=== PATIENT | female | born 1970 | race Caucasian/White ===

== ENCOUNTER 2017-01-26 00:19 | Emergency (ER) | payer MEDICARE, MEDICAID ==
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
--- NOTE | 2017-01-26 13:14 | Diagnostic Imaging Report ---
Portable chest x-ray History: Pain, trauma Allowing for portable technique the heart size is normal. No focal pulmonary parenchymal processes. No hilar or mediastinal abnormalities. Impression: No acute abnormalities.
--- NOTE | 2017-01-26 15:14 | Diagnostic Imaging Report ---
Facial bones (3 views) HISTORY: Pain, trauma Views are limited. Bony margins about the orbits appear intact. Suboptimal delineation the zygomatic arches. No obvious displaced fractures. Normal aeration of the paranasal sinuses. No acute bony abnormalities involve the mandible. IMPRESSION: No definite acute abnormalities
--- NOTE | 2017-01-26 15:15 | Diagnostic Imaging Report ---
KUB abdominal film HISTORY: Pain Exam demonstrates stool-filled nondilated ascending colon with minimally dilated air-filled transverse colon. Additional nondilated small bowel loops are seen. Surgical clips noted in the right upper quadrant of the abdomen consistent with a prior cholecystectomy. IMPRESSION: 1. Stool-filled minimally distended ascending colon with an otherwise nonspecific bowel gas pattern.
== END 2017-01-26 01:10 | disposition home or self-care (01) ==
LOC: ER 00:19
DX: R07.89 Other chest pain (principal); F17.200 Nicotine dependence, unspecified, uncomplicated; F31.9 Bipolar disorder, unspecified; F43.10 Post-traumatic stress disorder, unspecified; Z88.1 Allergy status to other antibiotic agents; Z88.8 Allergy status to other drugs, medicaments and biological substances
CPT/HCPCS: 99284; 96372; 99406; 93005; 70150; 71010; 74000; J1885; Z7502

== ENCOUNTER 2018-01-18 20:58 | Emergency (ER) | payer MEDICARE, MEDICAID ==
--- NOTE | 2018-01-18 22:05 | ED Physician Chart ---
ED Chief Complaint/HPI - Patient Information Date Seen:: 01/18/18 Time Seen:: 22:01 Chief Complaint:: Mouth pain History of Present Illness:: 47 yo female had lip lesions and pain for 2 weeks. She had biopsy done at [facility] 3 weeks ago. She had bipolar since 24 yo old. She also had anxiety and PTSD. Allergies:: Allergies Allergy/AdvReac Type Severity Reaction Status Date / Time erythromycin base Allergy Verified 01/26/17 00:26 lamotrigine [From Lamictal] Allergy Verified 01/26/17 00:26 Vitals:: Vital Signs - 8 hr 01/18/18 21:15 Temp 98.1 F HR 82 RR 20 BP 142/112 O2 Sat % 97 ED Review of Systems - Review of Systems General/Constitutional: No fever, No chills Skin: Skin lesions Head: Headache Eyes: No pain ENT: No nasal drainage, Other (mouth pain) Neck: No neck pain Cardio Vascular: No chest pain Pulmonary: No SOB GI: No nausea, No vomiting ED Past Medical History - Past Medical History Past Medical History: Other (Chronic coastochondritis, possible facial fungal infection) Social History: Smoker, Alcohol, Illicit Drug Use (Marijuana) Surgical History: Cholecystectomy Psychiatricy History: Bipolar, Other (anxiety, PTSD) Family Medical History - Family Member Mother History Unknown: Yes ED Physical Exam - Physical Examination General/Constitutional: Awake, Alert Head: Atraumatic Eyes: PERRL Other Skin comments:: upper and lower lips crusty lesions ENMT: Nasal exam nl Neck: No nuchal rigidity Respiratory: Clear to Auscultation Cardio Vascular: RRR, No murmur, gallop, rubs, NL S1 S2 GI: No tenderness/rebounding/guarding Neuro/Psych: Alert/oriented, No focal deficits ED Assessment - Assessment General Assessment: Mouth pain Bipolar disorder Assessment/Comments:: Ibuprofen 800mg po x 1 D/c home Continue home medications F/u biopsy pathology report ED Septic Shock - . Is Septic Shock (SBP<90, OR Lactate>4 mmol\L) present?: No - <6hrs of presentation: Vital Signs: Vital Signs - 8 hr 01/18/18 21:15 Temp 98.1 F HR 82 RR 20 BP 142/112 O2 Sat % 97 ED Reassessment (Disposition) - Reassessment Reassessment Condition:: Improved - Patient Disposition Discharge/Transfer:: Home
== END 2018-01-19 06:00 | disposition home or self-care (01) ==
LOC: ER 20:58
DX: K13.79 Other lesions of oral mucosa (principal); F31.9 Bipolar disorder, unspecified
CPT/HCPCS: Z7502

== ENCOUNTER 2018-01-20 23:15 | Emergency (ER) | payer MEDICARE, MEDICAID ==
[2018-01-20] MEDS ORDERED: Haloperidol Lactate 5 mg/mL 1mL Vial ONE (23:38)
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
[2018-01-20] MEDS ORDERED: Haloperidol Lactate 5 mg/mL 1mL Vial IM STA (23:45)
[2018-01-21 01:44] LABS: % EOSINOPHILS 2.1 % (0.0-5.0); % LYMPHOCYTES 17.6 % (20.0-50.0); % MONOCYTES 5.3 % (2.0-10.0); EOSINOPHILE ABSOLUTE 0.2 Th/cmm (0.1-0.4); HEMATOCRIT 39.9 % (41.0-60); HEMOGLOBIN 13.4 gm/dL (12-16); LYMPHOCYTE ABSOLUTE 1.7 Th/cmm (1.5-3.0); MEAN CELL VOLUME 94.3 fl (81-100); MEAN CORPUSCULAR HEMOGLOBIN 31.7 pg (27.0-31.0); MEAN CORPUSCULAR HGB CONC 33.6 pg (28.0-36.0); MEAN PLATELET VOLUME 7.9 fl; MONOCYTE ABSOLUTE 0.5 Th/cmm (0.3-1.0); NEUTROPHILE ABSOLUTE 7.3 Th/cmm (1.8-8.0); PLATELET COUNT 262 Th/cmm (150-400); RED BLOOD COUNT 4.23 Mil/cmm (3.80-5.10); RED CELL DISTRIBUTION WIDTH 12.4 % (11.5-20.0); WHITE BLOOD COUNT 9.7 Th/cmm (4.8-10.8)
[2018-01-21 02:11] LABS: ANION GAP 7.5 (7.0-16.0); BUN - UREA NITROGEN 10 mg/dL (7-25); CALCIUM SERUM 9.7 mg/dL (8.6-10.3); CARBON DIOXIDE 25.1 mEq/L (21.0-31.0); CHLORIDE 103 mEq/L (98-107); CREATININE - SERUM 0.6 mg/dL (0.6-1.2); GFR AFRICAN-AMERICAN > 60.0 ml/min (>90); GFR NON AFRICAN-AMERICAN > 60.0 ml/min; GLUCOSE 112 mg/dL (70-105); LIPASE 25 U/L (11-82); POTASSIUM SERUM 3.6 mEq/L (3.5-5.1); SODIUM SERUM 132 mEq/L (136-145)
[2018-01-21 06:27] LABS: AMPHETAMINE URINE POSITIVE (NEGATIVE); BARBITURATES URINE NEGATIVE (NEGATIVE); METHADONE URINE NEGATIVE (NEGATIVE); METHAMPHETAMINES QUAL URINE POSITIVE (NEGATIVE); OPIATES (MORPHINE) QUAL. URINE NEGATIVE (NEGATIVE); PHENCYCLIDINE (PCP) URINE NEGATIVE (NEGATIVE); TRICYCLICS (TCA) QUAL. URINE NEGATIVE (NEGATIVE)
[2018-01-21 06:28] LABS: BENZODIAZEPINES QUAL URINE POSITIVE (NEGATIVE); CANNABINOID THC POSITIVE (NEGATIVE); COCAINE METABOLITE QUAL URINE NEGATIVE (NEGATIVE)
== END 2018-01-21 06:48 | disposition home or self-care (01) ==
LOC: ER 23:15
DX: R41.82 Altered mental status, unspecified (principal); T50.905A Adverse effect of unspecified drugs, medicaments and biological substances, initial encounter; Y92.89 Other specified places as the place of occurrence of the external cause
CPT/HCPCS: 99284; 96372 ×3; 36415; 36416; 82948; 80307; 85025; 80320; 84703; 83690; 80048; J2060; J1200; J1630; Z7502

== ENCOUNTER 2018-02-16 18:06 | Emergency (ER) | payer MEDICARE, MEDICAID | END 2018-02-16 18:30 | disposition short-term general hospital (02) | LOC: ER 18:06 | DX: R51 Headache (principal) ==

== ENCOUNTER 2018-09-19 08:28 | Emergency (ER) | payer MEDICARE, MEDICAID | END 2018-09-19 08:30 | disposition left against medical advice (07) | LOC: ER 08:28 | DX: F41.9 Anxiety disorder, unspecified (principal); Z53.21 Procedure and treatment not carried out due to patient leaving prior to being seen by health care provider | CPT/HCPCS: Z7502 ==